=== PATIENT | male | born 1945 | race Hispanic/Latino ===

== ENCOUNTER 2021-02-14 10:06 | Outpatient (CLI) | payer MEDICARE ==
[2021-02-14 17:27] LABS: SARS-CoV-2 PCR by NAA Not Detected (NotDetected)
== END 2021-02-14 10:07 | disposition home or self-care (01) ==
LOC: CSHLAB 10:06
PROVIDERS: ATTEND Nurse Practitioner Family
DX: Z01.812 Encounter for preprocedural laboratory examination (principal); Z20.822 Contact with and (suspected) exposure to COVID-19; R06.09 Other forms of dyspnea
CPT/HCPCS: U0003; U0005

== ENCOUNTER 2021-02-19 08:56 | Outpatient (CLI) | payer MEDICARE | END 2021-02-19 08:57 | disposition home or self-care (01) | LOC: CSHCP 08:56 | PROVIDERS: ATTEND Nurse Practitioner Family | DX: R06.00 Dyspnea, unspecified (principal) | CPT/HCPCS: 94060; 94726; 94729; 94760 ==

== ENCOUNTER 2021-09-17 16:35 | Emergency (ER) | payer MEDICARE ==
[2021-09-17] MEDS ORDERED: Ibuprofen 200 MG TAB ONE (18:22)
[2021-09-17] MEDS ORDERED: Dexamethasone 20 MG/5 ML VIAL ONE (18:22)
[2021-09-18 00:19] LABS: SARS-CoV-2 PCR by NAA Not Detected (NotDetected)
== END 2021-09-17 19:12 | disposition home or self-care (01) ==
LOC: CSHERS 16:35
DX: J02.9 Acute pharyngitis, unspecified (principal); Z20.822 Contact with and (suspected) exposure to COVID-19; E78.5 Hyperlipidemia, unspecified; I10 Essential (primary) hypertension
CPT/HCPCS: 87081; 87430; 87804 ×2; 99284; U0003; U0005; J1100